=== PATIENT | male | born 1945 | race Caucasian/White ===

== ENCOUNTER → 2021-02-26 | Day surgery (SDC) | payer MEDICARE ==
[~2021-02-26] MED LIST: Acetylcysteine 800 MG/4 ML VIAL ONE; CEFAZOLIN 1 GM VIAL ONE; Fentanyl 100 MCG/2 ML VIAL ONE; Gentamicin 80 MG/2 ML VIAL ONE; Lidocaine 1% (PF) 30 ML VIAL ONE; Midazolam HCl 2 mg/2 ml Vial ONE
[2021-02-26 08:07] VITALS: BMI 27.3
[2021-02-26 08:16] VITALS: BP 170/95; TEMP 97.8
[2021-02-26 08:26] LABS: #Monocytes 0.7 10x3/uL (0.0-1.1); #Neutrophils 3.5 10x3/uL (1.5-8.4); %Basophils 0.2 % (0.0-2.0); %Lymphocytes 20.7 % (18.0-47.0); %Monocytes 12.4 % (0.0-10.0); %Neutrophils 66.3 % (40.0-75.0); Hemoglobin 13.6 g/dL (13.5-17.5); Mean Corpuscular HGB CONC 31.9 g/dL (32.0-36.0); Mean Corpuscular Hemoglobin 30.5 pg (27.0-33.0); Mean Corpuscular Volume 95.7 fl (81.2-95.1); Mean Platelet Volume 11.5 fl (7.4-10.4); Platelet Count 104 10x3/uL (150-450); RBC Distribution Width 14.3 % (11.5-14.5); Red Blood Cell (RBC) Count 4.46 10x6/uL (4.32-5.72); White Blood Cell (WBC) Count 5.3 10x3/uL (3.5-10.5)
[2021-02-26 08:30] LABS: PTT 28.2 sec (22.0-33.0); Prothrombin Time 11.1 sec (9.5-12.1)
[2021-02-26 08:32] LABS: Anion Gap 16 mmol/L (10-20); BUN (Urea Nitrogen) 32 mg/dL (8.4-25.7); Calc. Creatinine Clearance 50 mL/min (70-130); Calcium 8.7 mg/dL (7.8-10.44); Carbon Dioxide 23 mmol/L (23-31); Chloride 104 mmol/L (98-107); Glucose 83 mg/dL (83-110); Potassium 4.7 mmol/L (3.5-5.1); Sodium 138 mmol/L (136-145)
[2021-02-26 08:46] LABS: SARS-CoV-2 NAA Rapid Test DETECTED (NotDetected)
== END ==
LOC: CSHCCL 07:38
PROVIDERS: ATTEND Specialist
DX: I44.1 Atrioventricular block, second degree (principal); R00.1 Bradycardia, unspecified; I10 Essential (primary) hypertension; U07.1 COVID-19; I25.10 Atherosclerotic heart disease of native coronary artery without angina pectoris; Z95.1 Presence of aortocoronary bypass graft; I45.10 Unspecified right bundle-branch block; E78.5 Hyperlipidemia, unspecified; Z87.891 Personal history of nicotine dependence; Z79.82 Long term (current) use of aspirin; Z79.899 Other long term (current) drug therapy
CPT/HCPCS: 0240U; 33208; 71045; 80048; 85025; 85610; 85730; 93005; 93010; 99152; 99153; C1785; C1898; J0690; J1580; J2001; J2250; J3010